=== PATIENT | female | born 1980 | race Caucasian/White ===

== ENCOUNTER 2023-03-22 07:15 | Inpatient (IN) | payer OTHER ==
[2023-03-22] VITALS (23 sets, daily range): BP systolic 94–123; BP diastolic 57–82; PULSE 77–102; TEMP 97.7–98.2
[~2023-03-22] VITALS: Ht 162.6 cm; Wt 52.3 kg
[~2023-03-22 07:15] MED LIST: KLONOPIN 0.5MG0.5 MG PO; LEVAQUIN 5500 MG/TA1 PO; MOTRIN 200200 MG/TAB PO; MULTIVITAMIN FO1 CAP PO; PERCOCET 325 MG1 TA2 PO; PHENERGAN 25 TA25 MG PO; TYLENOL 8 HR PO
--- NOTE | 2023-03-22 08:50 | NUR ---
Pt to ct per wheelchair. Pt up and positioned in prone position on ct table. Monitors applied and o2 on at 2l/nc.
--- NOTE | 2023-03-22 09:35 | NUR ---
Dr Munoz removes tube.
--- NOTE | 2023-03-22 09:40 | NUR ---
Dr Munoz reinserts tube in left lower pelvis posteriorly.
--- NOTE | 2023-03-22 09:55 | NUR ---
Drain in place. Specimen obtained by Dr Munoz and specimen labeled.
[2023-03-22 10:49] LABS: BASO % 0.2 % (0.0-2.0); EOS # 0.2 K/mm3 (0.0-0.7); EOS % 2.7 % (0.0-4.0); GRAN # 2.9 K/mm3 (1.4-6.5); GRAN % 52.5 % (42.2-75.2); HEMOGLOBIN 11.7 g/dl (12.5-16.0); MEAN CELL VOLUME 91 fl (80.0-100.0); MEAN CORPUSCULAR HEMOGLOBIN 31 pg (27-31); MEAN CORPUSCULAR HGB CONC 34 g/dl (33.0-37.0); MEAN PLATELET VOLUME 9.7 fl (7.4-10.4); MONO # 0.4 K/mm3 (0.1-0.6); MONO % 7.4 % (1.7-9.3); PLATELET COUNT 272 K/mm3 (130-400); RED BLOOD COUNT 3.76 M/mm3 (4.10-5.30); REDCELL DISTRIBUTION WIDTH-CV 12.3 % (11.5-14.5)
[2023-03-22 10:50] LABS: HEMATOCRIT 34.1 % (37.0-47.0)
[2023-03-22 11:06] LABS: CALCIUM 9.3 mg/dL (8.4-10.2); CREATININE, serum 0.72 mg/dL (0.57-1.11); POTASSIUM 3.7 mmol/L (3.5-4.5)
--- NOTE | 2023-03-22 11:33 | NUR ---
PT ARRIVED TO ROOM 227 AT 1020 THIS MORNING. PT IS A&OX4. PT WITH COMPLAINTS OF PAIN AND IS FEELING NAUSEAS. PT NOTED WITH UROSTOMY, AND DRAIN TO THE R SIDE. PT APPEARS TO BE VERY ANXIOUS ABOUT RECENT MEDICAL EVENTS AND KEEPS STATING HOW MUCH PAIN SHE IS IN AND HOW THIS SITUATION IS TOO MUCH TO HANDLE. IS AT THE BEDSIDE, NURSE SPENT GREAT DEAL OF TIME TALKING WITH PT TO ASSIST IN CALMING HER DOWN. PT RELUCTANT TO TAKE ANY MEDICATION FOR PAIN OR NAUSEA AT FIRST. PT DID AGREE TO THE TORADOL AND PHENERGAN, BOTH ADMINISTERED, EFFECTIVE. PT NOW RESTING COMFORTABLY IN THE BED.
--- NOTE | 2023-03-22 19:00 | NUR ---
PT RESTING IN BED. C/O LT BUTTOCKS DRAIN SITE PAIN. SEE MAR FOR ROXICODONE GIVEN. UROSTOMY DRAINING YELLOW URINE. NO OTHER NEEDS.
[2023-03-23] VITALS (11 sets, daily range): BP systolic 94–117; BP diastolic 58–70; PULSE 67–80; TEMP 97.5–98
--- NOTE | 2023-03-23 11:58 | NUR ---
Pt lives in [place] with her , Missael @ [phone] and is independent with ADLs, but does have a walker/wheelchair. PCP is Dr. Lazaro and gets medications from [facility]. Sw await for further recommendations and follow up as needed. DC: Home.
--- NOTE | 2023-03-23 19:40 | NUR ---
Patient resting in bed. Exhausted from the day. Patient anxious at times, reports chronic anxiety. Patient has been independent and draining her nephrostomy tube on her own. She reports continued adequate output. Nephtube site was redressed today. site cleansed with new drain sponge and tegaderm. was called this afternoon to reviewed how to flush drain site per orders, made him aware that there was not a stopcock in place. Patient drain was disconnected and stop cock placed to flush, she could not tolerated the stopcock staying in place it caused to much discomfort so it was removed. minimal output obtained. Iv to Int per orders. Patient tolerated diet today without nausea. Her spouse was at bedside through out the day. We ambulated halls and she did well. Bedside report to nightnurse.
[2023-03-24] VITALS (10 sets, daily range): BP systolic 97–114; BP diastolic 63–81; PULSE 74–93; TEMP 97.6–98.1
--- NOTE | 2023-03-24 01:22 | NUR ---
attempted to give scheduled IV Toradol, IV would not flush, pt does not want it "messed with" any further at this time. refuses to have another site started, refuses toradol and refused any other pain meds. pt up to restroom and called RN in to bathroom to look at "discharge" on maxipad. pt states its "gushing from vagina", small amt of pale red fluid noted. pt states "it's the same thing thats coming out of the drain." assisted pt back to bed, will recheck pad next time she is up to restroom.
--- NOTE | 2023-03-24 04:40 | NUR ---
pt wanting RN to come to room, states she "feels full of air, is afraid that we have been putting air into her body with the accordian drain." wants drain bag removed and site capped. reports feeling air up in her chest and around into her back, left leg feels numb. pt feels like something is "just not right" removed drain bag and capped drain tube closed. refused to have site flushed, doesn't want anything else "put into her body" also states that she's having "alot more drainage from vagina" assisted pt to toilet, very small amt of pinkish fluid noted on pad. pain meds offered for back discomfort, pt refused. assisted back to bed. call light in reach.
--- NOTE | 2023-03-24 06:40 | NUR ---
awake sitting up on side of bed and ordering breakfast, bedside shift report received from YING Silva
--- NOTE | 2023-03-24 08:00 | NUR ---
Dr Boss in to see patient, answered all her questions and demonstrated to her when accordian is compressed it does not blow air back into her, then she was in agreement to have the drain reconnected, did not flush prior to reconnecting and this was OKd with Dr Valle
--- NOTE | 2023-03-24 09:20 | NUR ---
has been up and about in room independently and moving around, states has passed a small amount of flatus, empties urostomy independenlty, has a strip of bloody drainage on peripad approx 5cm in length and only 1cm in width, full assessment completed, see interventions for further info,
--- NOTE | 2023-03-24 12:20 | NUR ---
sitting up on side of bed working with yarn, denies needs
--- NOTE | 2023-03-24 15:46 | NUR ---
up and ambulating in [place] independently
--- NOTE | 2023-03-24 18:48 | NUR ---
bedside shift report given to YING Junior
--- NOTE | 2023-03-24 20:00 | NUR ---
PATIENT IS A&O AND INDEPENDENT IN ROOM. PATIENT UP AT ROOM SINK GETTING READY FOR BED AND NURSING WAS ABLE TO VISUALIZE HER SITES/DRAINS WELL. LEFT POSTERIOR UROSTOMY SITE IS CD&I WITH GAUZE. ACCORDIAN DRAIN TO DD WITH SMALL AMOUNTS OF SEROSANG FLUID NOTED. PATIENT C/O DISCOMFORT AND REQUESTING SOMETHING FOR PAIN, GIVEN WITH HS MEDS. TOLERATING GENERAL DIET IN SMALL AMOUNTS. NO C/O N/V. RIGHT WRIST IV TO INT. HEAD TO TOE ASSESSMENT COMPLETE. INDEPENDENT IN ROOM. NO OTHER NEEDS AT THIS TIME. CALL LIGHT IN REACH.
[2023-03-25] VITALS (12 sets, daily range): BP systolic 96–114; BP diastolic 59–70; PULSE 72–84; TEMP 97.7–98.5
--- NOTE | 2023-03-25 10:45 | NUR ---
Patient independent in room with care, reports self hygiene & managing her neph tube. Patient aware we are awaiting CT scan for possible drain removal.
--- NOTE | 2023-03-25 10:56 | NUR ---
Initial visit (this stay); Patient thanked Senior Advisor for following up with her and learning what is happening with her both physically and mentally. Nga is doing better just knowing she is getting the help she has needed and is seeing some progress being made. She states she has a long way to go but feels at least like she is doing better. Nga thanked Senior Advisor for coming in and listening, offering encouragement, prayer and God's blessings.
--- NOTE | 2023-03-25 12:30 | NUR ---
transmission supervisor started new IV to LAC after failed attempted by this nurse . Per patient medicated with Morphine prior to drain removal. removed drain. Patient was very anxious, her supportive at her side. Gauze and tape to site. Patient [facility] ordered, denies nausea. Just dislikes feelings post morphine. Encouraged patient to rest this afternoon.
--- NOTE | 2023-03-25 18:01 | NUR ---
aware patient wanting to stay the night. Patient up ambulating [place] independently and seems to be feeling better, she is going to order dinner. Will monitor.
--- NOTE | 2023-03-25 18:57 | NUR ---
Patient in good spirits. Bedside report to Sandi
--- NOTE | 2023-03-25 20:00 | NUR ---
PATIENT IS A&O AND INDEPENDENT IN ROOM. UROSTOMY TO DD. ACCORDIAN DRAIN DC'D TODAY, SITE IS CD&I WITH GAUZE & TEGADERM. PATIENT C/O DISCOMFORT AND REQUESTING SOMETHING FOR PAIN, GIVEN WITH HS MEDS. TOLERATING GENERAL DIET. NO C/O N/V. LEFT AC IV TO INT. HEAD TO TOE ASSESSMENT COMPLETE. INDEPENDENT IN ROOM. NO OTHER NEEDS AT THIS TIME. CALL LIGHT IN REACH.
[2023-03-26 00:14] VITALS: BP_SYST 104
[2023-03-26 03:41] VITALS: BP 94/56; PULSE 75; TEMP 98.3
--- NOTE | 2023-03-26 07:30 | NUR ---
PT RESTING IN BED A/O X4 PAIN 3/10 AT THE SITE OF NEPHROSTOMY TUBE. PT INDEPENDENT IN ROOM COMPLAINING OF WEAKNESS. NO NEEDS AT THIS TIME, WILL CONTINUE TO MONITOR.
[2023-03-26 07:55] VITALS: BP 100/60; PULSE 80; TEMP 98.6
[2023-03-26 11:29] VITALS: BP 105/67; PULSE 93; TEMP 97.9
--- NOTE | 2023-03-26 13:30 | NUR ---
DISCHARGE INFORMATION PROVIDED TO PT AND FAMILY. DISCUSSED FOLLOW UP APPOINTMENTS, NEW MEDICAITONS, AND SIGNS OF INFECTION. NO QUESTIONS AT THIS TIME. IV REMOVED. PT AND BELONGINGS ESCORTED OUT OF BUILDING.
[2023-04-08] MEDS ORDERED: CEPHALEXIN500 M1 PO (07:21)
[2023-04-08] MEDS ORDERED: LEVSIN 0.10.125 MG/T PO (07:21)
== END 2023-03-26 13:30 | disposition home or self-care (01) | DRG 699 ==
LOC: SURG 07:15 → INPTSU 07:15 → SURG 07:16 → EDSTATUS 08:30 → MEDICAL 08:30 → COL.RAD 08:30 → SURG 10:23
PROVIDERS: ADMIT Urology
PROC: 0W9H30Z Drainage of Retroperitoneum with Drainage Device, Percutaneous Approach (ICD-10-PCS; principal; 2023-03-22)
DX: N99.89 Other postprocedural complications and disorders of genitourinary system (principal); S37.19XA Other injury of ureter, initial encounter; T81.40XA Infection following a procedure, unspecified, initial encounter; N73.9 Female pelvic inflammatory disease, unspecified; Z90.710 Acquired absence of both cervix and uterus; Z91.040 Latex allergy status; Z88.5 Allergy status to narcotic agent; Z88.8 Allergy status to other drugs, medicaments and biological substances; Z91.048 Other nonmedicinal substance allergy status; Z93.6 Other artificial openings of urinary tract status
CPT/HCPCS: C1769; G0378; J0696; J1885; J2250; J2270; J2550; J3010; J7030